=== PATIENT | male | born 1995 | race Two or more races ===

== ENCOUNTER 2019-09-21 14:10 | Emergency (ER) | payer MEDICAID ==
[~2019-09-21] VITALS: Ht 165.1 cm; Wt 81.0 kg
[2019-09-21 14:28] VITALS: BP 136/76
[2019-09-21] MEDS ORDERED: ONDANSETRON 4MG ODT PO ONE (15:30)
[2019-09-21] MEDS ORDERED: MORPHINE SULFATE 10 MG/ML CPJ IM ONE (15:30)
[2019-09-21] MEDS ORDERED: LIDOCAINE 1%/EPI 1:100,000 10 ML VIAL IJ ONE (15:30)
[2019-09-21] MEDS ORDERED: TETANUS, DIPHTHERIA, PERTUSSIS VAC/PF 0.5ML (>7YR OLD) IM ONE (15:30)
[2019-09-21] MEDS ORDERED: LIDOCAINE HCL/EPINEPHRINE 1%-EPI 1:100,000 20 ML VIAL INFIL NR (16:00)
== END 2019-09-21 15:58 | disposition home or self-care (01) ==
LOC: ER 14:10
DX: L02.211 Cutaneous abscess of abdominal wall (principal); Z23 Encounter for immunization
CPT/HCPCS: 10060; 87070; 87077; 87205; 90471; 90715; 96372; 99284; J2270; Q0162; J3490